=== PATIENT | female | born 1955 | race African-American/Black ===

== ENCOUNTER 2018-07-29 12:59 | Emergency (ER) | payer OTHER ==
[~2018-07-29] VITALS: Ht 162.6 cm; Wt 72.3 kg
[2018-07-29] MEDS ORDERED: LORA10TA7 PO (13:35)
[2018-07-29] MEDS ORDERED: CHOL50004 PO (13:35)
[2018-07-29] MEDS ORDERED: BIOT1TAB6 PO (13:35)
[2018-07-29] MEDS ORDERED: HYDR25TA PO (13:35)
[2018-07-29] MEDS ORDERED: LISI-660 PO (13:35)
[2018-07-29 16:45] VITALS: BP 124/62
[2018-07-29 16:55] LABS: BASOPHILS % (AUTO) 0.9 % (0.0-2.0); EOSINOPHILS % (AUTO) 4.7 % (1.0-6.0); HEMATOCRIT 37.1 % (36-46); HEMOGLOBIN 12.7 g/dL (12.0-16.0); LYMPHOCYTES # (AUTO) 2.5 K/uL (1.0-4.8); LYMPHOCYTES % (AUTO) 27.6 % (22.0-44.0); MEAN CORPUSCULAR HGB CONC 34.3 G/dL (31.0-37.0); MEAN CORPUSCULAR VOLUME 93 fL (80-100); MONOCYTES # (AUTO) 0.5 K/uL (0.1-1.0); MONOCYTES % (AUTO) 5.3 % (2.0-9.0); NEUTROPHILS # (AUTO) 5.6 K/uL (1.8-7.7); NEUTROPHILS % (AUTO) 61.5 % (40.0-70.0); PLATELET COUNT (AUTO) 363 K/uL (150-450); RED BLOOD CELL COUNT(AUTO) 3.97 MIL/uL (4.00-5.20); RED CELL DISTRIBUTION WIDTH 13.7 % (11.5-14.5)
[2018-07-29] MEDS ORDERED: POVIDONE-IODINE 10% 15 ML SOLUTION UD TP ONE (17:00)
[2018-07-29] MEDS ORDERED: BACITRACIN 0.9 GM PACKET OINTMENT TP ONE (17:00)
== END 2018-07-29 17:16 | disposition home or self-care (01) ==
LOC: EMS 13:00
DX: S80.02XA Contusion of left knee, initial encounter (principal); I10 Essential (primary) hypertension; Z88.8 Allergy status to other drugs, medicaments and biological substances; Z91.018 Allergy to other foods; Z79.899 Other long term (current) drug therapy; W01.0XXA Fall on same level from slipping, tripping and stumbling without subsequent striking against object, initial encounter; Y93.01 Activity, walking, marching and hiking; Y92.89 Other specified places as the place of occurrence of the external cause; Y99.8 Other external cause status

== ENCOUNTER 2018-08-27 15:49 | Emergency (ER) | payer OTHER ==
[~2018-08-27 15:49] MED LIST: BIOT1TAB6 PO; CHOL50004 PO; HYDR25TA PO; LISI-660 PO; LORA10TA7 PO
== END 2018-08-27 16:30 | disposition left against medical advice (07) ==
LOC: EMS 15:51
DX: J45.909 Unspecified asthma, uncomplicated (principal); Z53.21 Procedure and treatment not carried out due to patient leaving prior to being seen by health care provider